=== PATIENT | male | born 1955 | race Caucasian/White ===

== ENCOUNTER 2016-09-12 10:14 | Emergency (ER) | payer MEDICARE ==
--- NOTE | 2016-09-12 10:38 | ED Physician Documentation ---
Skin Rash - HISTORIAN Historian: patient - HPI Chief Complaint: Skin Rash Additional Information: shingles rash lt lower thorax Onset: days ago (9) Timing: still present Duration: persistent since Location: trunk Quality: itchy, painful, burning Context: Medication Exposure: aspirin Further Comments: yes (pt first thought allergic reaction) - ROS CONST: none CVS/RESP: none EYES/ENT: none GI/: none MS/SKIN/LYMPH: none NEURO/PSYCH: none - PAST HX Past History: other (cerebral palsy as child kidney stones in past) Surgeries/Procedures: Yes (legs gb) - SOCIAL HX Smoking History: non-smoker (x 12 days-heavy prior) Alcohol Use: none Drug Use: none - FAMILY HX Family History: none - REVIEWED ASSESSMENTS Nursing Assessment Reviewed: Yes Vitals Reviewed: Yes Skin Rash Physical Exam - EXAM General Appearance: moderate distress Skin: warm,dry, skin rash (typical shingles rash lt lower thorax from thoracic vert to low sternum approx 2in wide) EENT: eyes nml inspection Neck: trachea midline Respiratory: no resp distress, breath sounds normal Abdomen: non-tender Neuro/Psych: oriented x3, motor nml, sensation nml, mood/affect nml Discharge Clincal Impression: Herpes zoster Condition: Fair Disposition: 01 HOME, SELF-CARE Decision to Admit: NO Decision Time: 10:43
[2016-09-12 11:50] VITALS: BP 111/75
== END 2016-09-12 10:55 | disposition home or self-care (01) ==
LOC: ED 10:14
DX: B02.9 Zoster without complications (principal)
CPT/HCPCS: 99282; 99283